=== PATIENT | female | born 1985 | race Caucasian/White ===

== ENCOUNTER → 2016-10-08 | Outpatient (CLI) | payer OTHER ==
[~2016-10-08] MED LIST: ATARAX,VISTARIL25 MG PO; FERROCITE324 MG PO; IBUPROFEN800 MG PO; Motrin PO; NOHOMEMEDS; ORTHO CYCLEN1 TABLET PO; PRENATAL TABLE1 EAC3 PO; TYLENOL EXTRA500 MG PO
== END | disposition home or self-care (01) ==
LOC: CDC 11:54
DX: O10.919 Unspecified pre-existing hypertension complicating pregnancy, unspecified trimester (principal); R94.31 Abnormal electrocardiogram [ECG] [EKG]; O09.90 Supervision of high risk pregnancy, unspecified, unspecified trimester
CPT/HCPCS: 93000

== ENCOUNTER 2017-01-21 18:46 | Inpatient (IN) | payer OTHER ==
[~2017-01-21] VITALS: Ht 165.1 cm; Wt 106.1 kg
[2017-01-21] MEDS ORDERED: LOPRESSOR25 MG PO (19:27)
[2017-01-21] MEDS ORDERED: PRENATAL TABLE1 EAC3 PO (19:28)
[2017-01-21] MEDS ORDERED: ZOLOFT25 MG PO (19:28)
[2017-01-21 19:40] VITALS: BP 135/77
[2017-01-21 21:04] LABS: ANION GAP 10 MEQ/L (2-14); CHLORIDE 105 MEQ/L (99-109); POTASSIUM 3.7 MEQ/L (3.7-5.4); SAMPLE HEMOLYSIS CHECK 0; SAMPLE ICTERIC CHECK 0; SAMPLE LIPEMIA CHECK 0; SODIUM 137 MEQ/L (136-147); TOTAL BILIRUBIN 0.3 MG/DL (0.0-1.0)
[2017-01-21 21:05] LABS: EOSINOPHIL (%) 0.7 % (0-5); EOSINOPHIL COUNT 0.1 K/uL (0-0.3); IMMATURE GRANULOCYTE (%) 0.8 % (0.0-0.7); IMMATURE GRANULOCYTE COUNT 0.1 K/uL; INSTRUMENT ABS NEUTROPHIL CT 8.3 K/uL; LYMPHOCYTE COUNT 1.6 K/uL (1.0-2.8); MCH 21.1 PG (29.0-34.0); MCHC 28.7 G/DL (30.0-36.0); MCV 73.5 FL (83-99); MEAN PLAT.VOLUME 10.8 uM^3 (9.5-12.4); MONOCYTE (%) 5.5 % (3-12); MONOCYTE COUNT 0.6 K/uL (0-0.8); NEUTROPHIL (%) 78.1 % (45-76); NEUTROPHIL COUNT 8.3 K/uL (1.8-6.4); NRBC (%) 0.3 /100 WBC (0-0); PLATELET COUNT 337 K/uL (156-360); RBC DIS.WIDTH-CV 18.2 % (11.8-14.6); RBC DIS.WIDTH-SD 47.1 % (39-53); RED BLOOD COUNT 4.22 M/uL (3.80-5.20); WHITE BLOOD COUNT 10.6 K/uL (4.1-10.2)
[2017-01-21 21:10] LABS: ALKALINE PHOSPHATASE 139 IU/L (3-129); GFR ESTIMATE (CALCULATED) > 59 mL/min/; GLUCOSE 96 mg/dL (70-99); LACTATE DEHYDROGENASE 142 IU/L (20-246); UREA NITROGEN (BUN) 12 mg/dL (9-23); URIC ACID 4.2 mg/dL (3.1-9.2)
[2017-01-21 21:33] LABS: UR CREATININE CONCENTRATION 211.6 MG/DL
[2017-01-21 21:41] VITALS: BP 127/60
[2017-01-21 22:33] VITALS: BP 129/58
[2017-01-21 23:55] VITALS: BP 134/60
[2017-01-22] VITALS (19 sets, daily range): BP systolic 109–151; BP diastolic 57–87
[2017-01-23 07:26] VITALS: BP 128/60
[2017-01-23 07:39] LABS: EOSINOPHIL (%) 0.9 % (0-5); EOSINOPHIL COUNT 0.1 K/uL (0-0.3); HEMATOCRIT 29.6 % (36.0-46.0); IMMATURE GRANULOCYTE (%) 0.4 % (0.0-0.7); INSTRUMENT ABS NEUTROPHIL CT 8.2 K/uL; LYMPHOCYTE COUNT 2.2 K/uL (1.0-2.8); MCH 21.3 PG (29.0-34.0); MCHC 28.4 G/DL (30.0-36.0); MCV 74.9 FL (83-99); MEAN PLAT.VOLUME 11.2 uM^3 (9.5-12.4); MONOCYTE (%) 5.8 % (3-12); MONOCYTE COUNT 0.7 K/uL (0-0.8); NEUTROPHIL (%) 73.4 % (45-76); NEUTROPHIL COUNT 8.2 K/uL (1.8-6.4); NRBC (%) 0.3 /100 WBC (0-0); PLATELET COUNT 264 K/uL (156-360); RBC DIS.WIDTH-CV 18.4 % (11.8-14.6); RBC DIS.WIDTH-SD 49.3 % (39-53); RED BLOOD COUNT 3.95 M/uL (3.80-5.20); WHITE BLOOD COUNT 11.2 K/uL (4.1-10.2)
[2017-01-23] MEDS ORDERED: HEMOCYTE324 MG PO (08:45)
[2017-01-23] MEDS ORDERED: IBUPROFEN800 MG PO (08:45)
[2017-01-23 11:13] VITALS: BP 119/67
== END 2017-01-23 15:15 | disposition home or self-care (01) | DRG 774 ==
LOC: LDRP-OP → 2WEST 18:47 → LDRP-OP 01-31 13:26
PROVIDERS: Advanced Practice Midwife
PROC: 3E0P7GC Introduction of Other Therapeutic Substance into Female Reproductive, Via Natural or Artificial Opening (ICD-10-PCS; 2017-01-21)
PROC: 3E033VJ Introduction of Other Hormone into Peripheral Vein, Percutaneous Approach (ICD-10-PCS; 2017-01-21)
PROC: 10E0XZZ Delivery of Products of Conception, External Approach (ICD-10-PCS; principal; 2017-01-22)
PROC: 10907ZC Drainage of Amniotic Fluid, Therapeutic from Products of Conception, Via Natural or Artificial Opening (ICD-10-PCS; 2017-01-22)
DX: O10.02 Pre-existing essential hypertension complicating childbirth (principal); O99.354 Diseases of the nervous system complicating childbirth; O15.1 Eclampsia complicating labor; Z37.0 Single live birth; E66.9 Obesity, unspecified; O99.214 Obesity complicating childbirth; Z68.38 Body mass index [BMI] 38.0-38.9, adult; D50.9 Iron deficiency anemia, unspecified; O99.02 Anemia complicating childbirth; F41.9 Anxiety disorder, unspecified; G43.909 Migraine, unspecified, not intractable, without status migrainosus; O99.344 Other mental disorders complicating childbirth; O77.0 Labor and delivery complicated by meconium in amniotic fluid; Z3A.37 37 weeks gestation of pregnancy; R01.1 Cardiac murmur, unspecified; Z79.82 Long term (current) use of aspirin
CPT/HCPCS: 80053; 82570; 83615; 84156; 84550; 85025; G0378; J0595; J7120